=== PATIENT | male | born 1965 | race Caucasian/White ===

== ENCOUNTER 2019-03-18 23:06 | Inpatient (IN) | payer MEDICAID ==
[~2019-03-18] VITALS: Ht 170.2 cm; Wt 84.0 kg
[2019-03-18 23:15] VITALS: Ht 170.2 cm; Wt 84.0 kg
[2019-03-18 23:44] LABS: BASOPHIL % 0.3 % (0-2); PLATELET COUNT 264 x10^3mcL (130-400); RED CELL DISTRIBUTION WIDTH 13.3 % (11.5-14.5)
[2019-03-18 23:48] LABS: CALCIUM 8.4 mg/dL (8.5-10.1); CARBON DIOXIDE 26.5 mmol/L (21-32); CHLORIDE SERUM 99 mmol/L (98-107); GFR1 > 60 mL/min; GLUCOSE SERUM 160 mg/dL (74-106); POTASSIUM SERUM 3.5 mmol/L (3.5-5.1); SODIUM SERUM 135 mmol/L (136-145)
[2019-03-18 23:53] LABS: ALBUMIN 4.3 g/dL (3.4-5.0); ALKALINE PHOSPHATASE 71 U/L (46-116); ALT/SGPT 69 U/L (16-63); AST/SGOT 30 U/L (15-37); BILIRUBIN TOTAL 0.6 mg/dL (0.20-1.00); TOTAL PROTEIN, SERUM 8.1 g/dL (6.4-8.2)
[2019-03-19 02:26] LABS: microscopic required? NO
[2019-03-19 02:33] LABS: UA SPECIFIC GRAVITY 1.015 (1.005-1.035); urine erythrocyte NEGATIVE (NEGATIVE)
[2019-03-19 02:43] LABS: AMPHETAMINE QUAL UR NONE DETECTED (See below)
[2019-03-19 03:22] VITALS: BP 156/78
[2019-03-19 06:23] LABS: CARBON DIOXIDE 26.5 mmol/L (21-32); CHLORIDE SERUM 100 mmol/L (98-107); CREATININE SERUM 0.8 mg/dL (0.7-1.3); GFR1 > 60 mL/min; GLUCOSE SERUM 115 mg/dL (74-106); MAGNESIUM 1.9 mg/dL (1.8-2.4); PHOSPHOROUS 3.2 mg/dL (2.5-4.9); POTASSIUM SERUM 3.5 mmol/L (3.5-5.1); SODIUM SERUM 136 mmol/L (136-145)
[2019-03-19 06:24] VITALS: BP 156/91
[2019-03-19 06:47] LABS: BASOPHIL % 0.2 % (0-2); PLATELET COUNT 242 x10^3mcL (130-400); RED CELL DISTRIBUTION WIDTH 13.3 % (11.5-14.5)
[2019-03-19 08:58] VITALS: BP 146/85
[2019-03-19 13:54] VITALS: BP 156/871
[2019-03-19 16:35] VITALS: BP 129/73
[2019-03-19 21:26] VITALS: BP 98/66
[2019-03-20 05:20] VITALS: BP 124/75
[2019-03-20 06:51] LABS: BASOPHIL % 0.2 % (0-2); PLATELET COUNT 271 x10^3mcL (130-400); RED CELL DISTRIBUTION WIDTH 13.2 % (11.5-14.5)
[2019-03-20 07:17] LABS: CALCIUM 8.3 mg/dL (8.5-10.1); CARBON DIOXIDE 24.5 mmol/L (21-32); CREATININE SERUM 1.4 mg/dL (0.7-1.3); POTASSIUM SERUM 3.7 mmol/L (3.5-5.1)
[2019-03-20 08:45] VITALS: BP 112/73
[2019-03-20 14:30] VITALS: BP 123/73
[2019-03-20 18:01] VITALS: BP 101/56
[2019-03-20 21:51] VITALS: BP 117/73
[2019-03-21 04:17] VITALS: BP 120/67
[2019-03-21 06:34] LABS: BASOPHIL % 0.1 % (0-2); PLATELET COUNT 210 x10^3mcL (130-400); RED CELL DISTRIBUTION WIDTH 13.4 % (11.5-14.5)
[2019-03-21 06:49] LABS: CALCIUM 7.6 mg/dL (8.5-10.1); CARBON DIOXIDE 29.4 mmol/L (21-32); CHLORIDE SERUM 102 mmol/L (98-107); GFR1 > 60 mL/min; GLUCOSE SERUM 117 mg/dL (74-106); MAGNESIUM 1.9 mg/dL (1.8-2.4); PHOSPHOROUS 1.6 mg/dL (2.5-4.9); POTASSIUM SERUM 3.4 mmol/L (3.5-5.1); SODIUM SERUM 138 mmol/L (136-145)
[2019-03-21 09:22] VITALS: BP 124/84
[2019-03-21 16:06] VITALS: BP 134/82
[2019-03-21 20:43] VITALS: BP 135/88
[2019-03-22 05:41] VITALS: BP 144/83
[2019-03-22 08:33] LABS: CALCIUM 7.7 mg/dL (8.5-10.1); CHLORIDE SERUM 102 mmol/L (98-107); GFR1 > 60 mL/min; GLUCOSE SERUM 147 mg/dL (74-106); POTASSIUM SERUM 3.4 mmol/L (3.5-5.1); SODIUM SERUM 137 mmol/L (136-145)
[2019-03-22 08:56] LABS: BASOPHIL % 0.3 % (0-2); PLATELET COUNT 254 x10^3mcL (130-400); RED CELL DISTRIBUTION WIDTH 13.6 % (11.5-14.5)
[2019-03-22 09:09] VITALS: BP 141/83
[2019-03-22] MEDS ORDERED: KEFLEX500 M1 PO (10:55)
== END 2019-03-22 14:28 | disposition home or self-care (01) | DRG 233 ==
LOC: ED 23:06 → MU 03-19 01:55
PROVIDERS: Surgery; ADMIT Internal Medicine
PROC: 0DTJ4ZZ Resection of Appendix, Percutaneous Endoscopic Approach (ICD-10-PCS; principal; 2019-03-19 15:15)
PROC: 0DTJ0ZZ Resection of Appendix, Open Approach (ICD-10-PCS; 2019-03-20)
DX: K35.33 Acute appendicitis with perforation, localized peritonitis, and gangrene, with abscess (principal); E83.51 Hypocalcemia; T87.89 Other complications of amputation stump; E87.1 Hypo-osmolality and hyponatremia; R73.9 Hyperglycemia, unspecified; I10 Essential (primary) hypertension; Z68.28 Body mass index [BMI] 28.0-28.9, adult
CPT/HCPCS: 90658; G0378; J0330; J1170; J1885; J2270; J2405; J2543; J2704; J2710; J3010; J3490; J7030; J7120